=== PATIENT | male | born 1950 | race Two or more races ===

== ENCOUNTER 2020-10-21 14:30 | Outpatient (CLI) | payer OTHER | END 2020-10-21 15:00 | disposition home or self-care (01) | LOC: PPH VACUNA 14:30 | PROVIDERS: ATTEND Emergency Medicine Pediatric Emergency Medicine | DX: Z23 Encounter for immunization (principal) ==

== ENCOUNTER 2021-08-08 08:52 | Emergency (ER) | payer OTHER ==
[~2021-08-08] VITALS: Ht 175.3 cm; Wt 81.6 kg
[2021-08-08] MEDS ORDERED: TAMSULOSIN HCL0.4 MG PO (09:03)
[2021-08-08] MEDS ORDERED: LEVOTHYROXINE75 MCG PO (09:03)
[2021-08-08] MEDS ORDERED: PROPRANOLOL HCL10 MG PO (09:03)
== END 2021-08-08 12:38 | disposition home or self-care (01) ==
LOC: ER 08:52
DX: R33.8 Other retention of urine (principal); I10 Essential (primary) hypertension; N40.0 Benign prostatic hyperplasia without lower urinary tract symptoms

== ENCOUNTER 2024-02-29 06:00 | Day surgery (SDC) | payer OTHER ==
[~2024-02-29 06:00] MED LIST: LEVOTHYROXINE75 MCG PO; PROPRANOLOL HCL10 MG PO; TAMSULOSIN HCL0.4 MG PO
[2024-02-29] MEDS ORDERED: HEMOSTATIC MATRIX 1 KIT KIT TOP ONE (10:10)
[2024-02-29] MEDS ORDERED: BUPIVACAINE HCL/MPF 0.5% 30ML VIAL ONE (10:11)
[2024-02-29] MEDS ORDERED: CEFTRIAXONE SODIUM 2,000 MG VIAL ONE (10:12)
[2024-02-29] MEDS ORDERED: METRONIDAZOLE/SODIUM CHLORIDE 500 MG/100 ML PIGGYBACK IV ONE (10:12)
[2024-02-29] MEDS ORDERED: BUPIVACAINE LIPOSOME/PF 266 MG/20 ML VIAL IJ ONE (10:13)
[2024-02-29] MEDS ORDERED: DIBUCAINE 30 GM TUBE ONE (11:19)
[2024-02-29] MEDS ORDERED: TAMSULOSIN HCL0.4 MG PO (11:38)
[2024-02-29] MEDS ORDERED: PERCOCET 5-3251 EACH PO (11:39)
[2024-02-29] MEDS ORDERED: RECTICARE30 GM TOP (11:40)
[2024-02-29] MEDS ORDERED: TAMSULOSIN HCL 0.4 MG CAP PO ONE ×2 (18:05→23:00)
== END 2024-02-29 18:35 | disposition home or self-care (01) ==
LOC: CIR.AMB 06:00
PROVIDERS: ATTEND Surgery
DX: K64.3 Fourth degree hemorrhoids (principal); K64.4 Residual hemorrhoidal skin tags; I10 Essential (primary) hypertension

== ENCOUNTER 2024-02-29 22:06 | Emergency (ER) | payer OTHER ==
[~2024-02-29] VITALS: Ht 175.3 cm; Wt 83.9 kg
[~2024-02-29 22:06] MED LIST changes: +PERCOCET 5-3251 EACH PO; +RECTICARE30 GM TOP
== END 2024-02-29 22:47 | disposition home or self-care (01) ==
LOC: ER 22:08
DX: R33.9 Retention of urine, unspecified (principal); I10 Essential (primary) hypertension